=== PATIENT | male | born 1960 | race Caucasian/White ===

== ENCOUNTER 2019-02-01 06:06 | Day surgery (SDC) | payer BC, SELFPAY ==
[2019-02-01 06:26] VITALS: BP 132/86; PULSE 67; RESP 19; TEMP 36.2; O2SAT 98
[2019-02-01] MEDS: Lactated Ringers 1,000 ML 80 ML IV (06:39)
[2019-02-01] MEDS: ceFAZolin 1 GM/50 ML BAG IVPB (07:28)
[2019-02-01] MEDS: Lidocaine 1% Pres-Free 5 ML VIAL ×2 (07:45)
[2019-02-01] MEDS: Bupivacaine 0.5% Pres-Free 30 ML VIAL (07:45)
--- NOTE | 2019-02-01 08:00 | SYNOVIUM_PTH ---
PATIENT: MIRIAN DIEHL LOC: [facility] U#:[id number] AGE/SX: 58/M ROOM: RE02/01/[address]: Kennedy Warren : 1960 BED: DIS: 02/01/2019 SPEC #: [id number] RECD: 02/01/19 12:40 STATUS: YURI REQ #: [id number] DINESH: 02/01/19 08:[address]: Kennedy Warren DEPT: Surgical Specimen RECD BY: Kaelyn Zhang ENTERED: 02/01/19 12:41 SP TYPE: SYNOVIUM OTHR DR: Giovanni Quintanilla Tissues: 1 - SYNOVIUM/IAL Procedures: GROSS AND MICRO LEVEL 4 Comments: [id number]
[2019-02-01] MEDS: Dexamethasone 4 MG/ML VIAL (08:23)
--- NOTE | 2019-02-01 08:59 | W.PM.DSUDISC ---
Discharge Plan Disposition Patient Disposition: HOME Condition: Good Discharge Details Reason For Visit: MASS, SYNOVITIS Attending Provider: Kennedy Warren Primary Care Provider: Giovanni Quintanilla Home Meds and New Rx's Prescriptions: No Action atorvastatin 80 mg Tablet 80 mg PO DAILY RF: 0 sucralfate 1 gram Tablet 1 g PO QACHS RF: 0 metoprolol succinate 200 mg Tablet Extended Release 24 Hr 200 mg PO DAILY RF: 0 tramadol 50 mg Tablet 50 mg PO QID RF: 0 amlodipine 10 mg Tablet 10 mg PO DAILY RF: 0 gabapentin 300 mg Capsule 300 mg PO BID RF: 0 omeprazole 40 mg Capsule,Delayed Release(Dr/Ec) 40 mg PO BID RF: 0 Discharge Instructions Stand Alone Forms: [facility] Instructions-DSU, Tamera López (DSU) Activity:: Elevate Remove Dressings/Wound Care:: Do Not Remove Shower/Bathe:: Cover Diet:: Normal Diet Discharge Orders Discharge Orders: Discharge Order (Routine); Ordered 02/01/19 Ordered By: Kennedy Warren DS: Diagnosis Discharge Diagnosis (1) Synovitis of foot: Start date: 02/01/19 Start time: 09:00 Status: Acute
[2019-02-01 09:25] VITALS: BP 136/84; PULSE 60; RESP 20; TEMP 35.9; O2SAT 98
--- NOTE | 2019-02-01 11:24 | ROE_ITS ---
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 PROCEDURE: Synovectomy with debridement of soft tissue, second MPJ, right foot. SURGEON: Kennedy Warren D.P.M. OPERATIVE INDICATIONS: 58-year-old white male with moderate to severe pain surrounding the second MP J region of his right foot with radiological evidence of synovitis. He is being brought to the O.R. for debridement, resection of the synovitis-synovectomy. He understands the potential risks and comp lications pertaining to pain, scarring, infection, recurrence of synovitis and the need potentially f or more revisional procedures. Informed consent has been obtained. No promises made to the final ou tcome of surgery. REPORT OF OPERATION: Adalberto was brought to the operative suite and placed in the supine position. Th e right foot is prepped and draped in the usual sterile podiatric fashion. A time-out was obtained. Appropriate site, patient, allergies identified. Attention was directed to the right foot, which was exsanguinated and a well-padded ankle tourniquet inflated 250 mmHg. Attention was directed to the right second toe. The second toe was grossly edema tous up to the PIPJ, extending into the first metatarsal space. A curvilinear incision was made star ting from the neck of the second metatarsal, curving up onto the base of the proximal phalanx, extend ing to the base of the middle phalanx. The incision was deepened in controlled-depth fashion. Hyper trophic soft tissue was immediately encountered. It had a combination of white fatty, lobular tissue , as well as some areas of inflamed, reddish-appearing tissue, consistent with synovium synovitis. W ith blunt and sharp dissection, the soft tissue was stripped out starting from just below the skin le renita and dissecting it down through the first intermetatarsal space. It appeared to attach onto the d orsal medial aspect of the proximal phalangeal base. Once I had it nicely isolated, I resected it at this level, removed it from the field, placed it in formalin for pathology. I still had a sense deangelo t there was a fair amount of thickness involving the extensor tendon plunkett apparatus of the second toe , so a medial longitudinal incision was made parallel to the EHL tendon. This structure was lifted i n one billiard player the bone. The base of the proximal phalanx appeared to have some synovitis. With a rongeur, the affected region was rongeured, resecting the dorsal aspect of the base of the proximal p halanx at the joint line and curetting the bone. It went partially through the cortex but didn't lesli ak through. I stripped out some additional injected soft tissue from within the joint capsule, and t his was also sent in the same container to pathology. Copious irrigation was performed. The structu res that were visualized appeared more anatomic. The extensor tendon joint capsule was repaired with simple interrupted suture #3-0 Vicryl. The subcutaneous layer was brought together with simple inte rrupted suture #4-0 Vicryl. The skin was coapted with a #4-0 running Monocryl suture. Four milligra ms of dexamethasone phosphate was infused deeply within the wound. Xeroform, gauze fluff compression dressings were applied. The tourniquet was released at 51 minutes with vascularity returning immedi ately to the entire foot. Adalberto left the O.R. with vital signs stable, vascular status intact. Timur p and sponge corrects were correct. He will be followed by me next week.
== END 2019-02-01 09:40 | disposition home or self-care (01) ==
PROVIDERS: PCP Physician Assistant; Visit Provider Podiatrist
PROC: (CPT 28072; principal; 2019-02-01 07:30)
DX: M65.871 Other synovitis and tenosynovitis, right ankle and foot (principal)
CPT/HCPCS: 28072; 88305; J0690; J1100